=== PATIENT | female | born 2000 | race Caucasian/White ===

== ENCOUNTER 2020-01-04 13:00 | Emergency (ER) | payer OTHER, MEDICAID, SELFPAY ==
[2020-01-04 13:14] VITALS: BP 185/94; PULSE 106; RESP 16; TEMP 36.5; O2SAT 99
--- NOTE | 2020-01-04 14:16 | ED.SKABFB ---
HPI - Skin/Abscess/Foreign Bdy General Chief complaint: Skin/Abscess/Foreign Body Stated complaint: bite on back left leg Time Seen by Provider: 01/04/20 13:49 Source: patient and RN notes reviewed Mode of arrival: ambulatory Limitations: no limitations History of Present Illness HPI narrative: Patient presents today complaining of a possible insect bite to the posterior left calf that has been present for the last 2 days, worse since yesterday. Family member attempted to pop the area yesterday, resulting in some pus. Patient denies any history of abscesses, boils, staph infections. Currently rates her pain 03/08 and has been taking naproxen with some relief. MD complaint: insect bite/sting Related Data Allergies Allergy/AdvReac Type Severity Reaction Status Date / Time amoxicillin Allergy Intermediate Rash Verified 01/04/20 13:39 Penicillins Allergy Intermediate Rash Verified 01/04/20 13:39 Review of Systems Review of Systems: Narrative: CONSTITUTIONAL: Denies body aches, fever, chills, or sweats. EYES: Denies visual changes, redness, or discharge. ENT: Denies rhinorrhea, congestion, sore throat, or otalgia. CARDIOVASCULAR: Denies chest pain, palpitations, or edema. RESPIRATORY: Denies cough or dyspnea. GASTROINTESTINAL: Denies abdominal pain, nausea, vomiting, or diarrhea. GENITOURINARY: Denies dysuria or hematuria. SKIN: Denies rash, itching. + Insect sting to her left lower leg MUSCULOSKELETAL: Denies back pain, joint pain, or myalgia. NEUROLOGIC: Denies headache, numbness, tingling, or weakness. PSYCH: Denies depression or anxiety. [facility] Surgical History Surgical History (Updated 01/04/20 @ 14:18 by Jocelyn Ramey, [facility], ) History of cholecystectomy Exam Narrative: Exam Narrative: GENERAL: Well-appearing, over-nourished, and in no acute distress. HEAD: Normocephalic, atraumatic. EYES: EOMI. No redness or drainage. Conjunctivae normal. ENT: Mucous membranes pink and moist. NECK: Normal AROM. CHEST: No respiratory distress. EXTREMITIES: Left lower leg: Posteriorly, erythematous 7 x 6 cm area of mild induration with 1 x 1 cm area of fluctuance. Mildly tender to palpation. No active drainage. Distal sensation intact. Capillary refill normal. No edema or red streaking noted. Full range of motion of the ankle and knee. SKIN: Warm, dry, no rash. Capillary refill normal. Normal skin turgor. NEURO: No focal deficits. Alert and oriented x3. Gait steady. PSYCH: Normal affect. No signs of depression or anxiety. Course Vital Signs Vital signs: Vital Signs Temperature 97.7 F 01/04/20 13:14 Pulse Rate 106 H 01/04/20 13:14 Respiratory Rate 16 01/04/20 13:14 Blood Pressure 185/94 H 01/04/20 13:14 Pulse Oximetry 99 01/04/20 13:14 Temperature 97.7 F 01/04/20 13:14 Pulse Rate 106 H 01/04/20 13:14 Respiratory Rate 16 01/04/20 13:14 Blood Pressure 185/94 H 01/04/20 13:14 Pulse Oximetry 99 01/04/20 13:14 Reviewed. Pt has been instructed to follow up with her PCP regarding her elevated blood pressure today. Procedures Abscess I/D lower extremity: Date of Incision: 01/04/20 Time of Incision: 14:00 Side (if applicable): left Local Anesthetic: lidocaine 1% Amount of anesthesia used (mL): 2 Technique: incised with #11 blade Amount of fluid expressed (mL): 0.5 Irrigation: No Packing used?: none I&D Results: Pus and Blood Abcess I&D Additional Comments: Wound culture obtained. Dressed with large Band-Aid. Patient tolerated procedure well MDM - Skin/Abscess/Foreign Bdy Differential Diagnosis Differential diagnosis: Likely abscess of skin or subcutaneous tissue, urticaria, cellulitis, insect bites and impetigo Critical Care Time Critical Care Time Critical Care Time: No Discharge Plan Discharge Clinical Impression: Cellulitis and abscess of left leg Patient Disposition: Home, Self-Care Condition: S
== END 2020-01-04 14:27 | disposition home or self-care (01) ==
PROVIDERS: Emergency Provider Nurse Practitioner
DX: L03.116 Cellulitis of left lower limb (principal); L02.416 Cutaneous abscess of left lower limb
CPT/HCPCS: 10060; 87070; 87147; 87186; 87205; 99203; G0463

== ENCOUNTER 2020-01-25 13:06 | Emergency (ER) | payer OTHER, MEDICAID, SELFPAY ==
[2020-01-25 13:16] VITALS: BP 152/93; PULSE 108; RESP 16; TEMP 36.9; O2SAT 98
--- NOTE | 2020-01-25 13:43 | ED.URI ---
HPI - URI/Sore Throat General Chief Complaint: Upper Respiratory Infection Stated Complaint: sore throat Time Seen by Provider: 01/25/20 13:19 Source: patient and RN notes reviewed Mode of arrival: ambulatory Limitations: no limitations History of Present Illness HPI Narrative: Patient presents today complaining of a sore throat since this morning. Pain increases with swallowing. Denies fever, difficulty swallowing, shortness of breath. Currently rates her pain 1/10. She took Aleve with mild relief. 1 week ago patient developed congestion and cough symptoms. The symptoms have since completely resolved. Denies known exposure to COVID-19. MD elicited complaint: sore throat Related Data Allergies Allergy/AdvReac Type Severity Reaction Status Date / Time amoxicillin Allergy Intermediate Rash Verified 01/04/20 13:39 Penicillins Allergy Intermediate Rash Verified 01/04/20 13:39 Review of Systems Review of Systems: Narrative: CONSTITUTIONAL: Denies body aches, fever, chills, or sweats. EYES: Denies visual changes, redness, or discharge. ENT: Denies rhinorrhea, congestion, or otalgia.+Sore throat CARDIOVASCULAR: Denies chest pain, palpitations, or edema. RESPIRATORY: Denies cough or dyspnea. GASTROINTESTINAL: Denies abdominal pain, nausea, vomiting, or diarrhea. GENITOURINARY: Denies dysuria or hematuria. SKIN: Denies rash, itching, or wounds. MUSCULOSKELETAL: Denies back pain, joint pain, or myalgia. NEUROLOGIC: Denies headache, numbness, tingling, or weakness. PSYCH: Denies depression or anxiety. [facility] Surgical History Surgical History (Updated 01/04/20 @ 14:18 by Jocelyn Ramey, [facility], ) History of cholecystectomy Comments At time of signature, I have reviewed and agree with nursing past medical, surgical, social and family history unless otherwise noted. Please see nursing chart for further information. There is no relevant family history pertinent to the presenting complaint Exam Narrative: Exam Narrative: GENERAL: Well-appearing, over-nourished, and in no acute distress. HEAD: Normocephalic, atraumatic. EYES: EOMI. No redness or drainage. Conjunctivae normal. ENT: Mucous membranes pink and moist. Nares clear. No rhinorrhea. TMs normal bilaterally. Throat Erythematous. Tonsils 2+ with small amount of white exudate bilaterally. Uvula midline. NECK: Normal AROM. Supple. No lymphadenopathy. CHEST: No respiratory distress. Clear to auscultation. HEART: Regular rate and rhythm. No murmur appreciated. Normal peripheral pulses. EXTREMITIES: Normal range of motion. No edema. SKIN: Warm, dry, no rash. Capillary refill normal. Normal skin turgor. NEURO: No focal deficits. Alert and oriented x3. Gait steady. PSYCH: Normal affect. No signs of depression or anxiety. Course Vital Signs Vital signs: Vital Signs Temperature 98.5 F 01/25/20 13:16 Pulse Rate 108 H 01/25/20 13:16 Respiratory Rate 16 01/25/20 13:16 Blood Pressure 152/93 H 01/25/20 13:16 Pulse Oximetry 98 01/25/20 13:16 Temperature 98.5 F 01/25/20 13:16 Pulse Rate 108 H 01/25/20 13:16 Respiratory Rate 16 01/25/20 13:16 Blood Pressure 152/93 H 01/25/20 13:16 Pulse Oximetry 98 01/25/20 13:16 Reviewed. Pt has been instructed to follow up with her PCP regarding her elevated blood pressure today. MDM - URI/Sore Throat Differential Diagnosis Differential diagnosis: Likely upper respiratory infection, otitis media, sinusitis, viral infection, pharyngitis and other (Strep throat, COVID-19) Lab Data Attestation: I reviewed the patient's lab results. Labs: Strep Screen Presumptive Negative *(Reference Range: Negative)* Critical Care Time Critical Care Time Critical Care Time: No Discharge Plan Discharge Clinical Impression: Pharyngitis Qualifiers: Pharyngitis/tonsillitis etiology: unspecified etiology Qualified Code(s): J02.9 - Acute pharyngitis, unspecifi
== END 2020-01-25 14:05 | disposition home or self-care (01) ==
PROVIDERS: Emergency Provider Nurse Practitioner
DX: J02.9 Acute pharyngitis, unspecified (principal); Z20.828 Contact with and (suspected) exposure to other viral communicable diseases
CPT/HCPCS: 87081; 87880; 99213; G0463

== ENCOUNTER 2023-09-04 11:27 | Emergency (ER) | payer OTHER, SELFPAY ==
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
[2023-09-04 11:28] VITALS: BP 152/109; PULSE 94; RESP 16; TEMP 36.5; O2SAT 100
[2023-09-04 11:36] VITALS: BP 153/110; RESP 20; TEMP 36.3; O2SAT 100
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
[2023-09-04] MEDS: IBUPROFEN 600 MG TABLET PO (13:22)
[2023-09-04] MEDS: HYDROcodone/acetaminophen (*CRX) 5-325 MG TABLET 1 TAB PO (13:23)
[2023-09-04 14:30] VITALS: BP 141/89; PULSE 92; RESP 19; TEMP 36.9; O2SAT 100
== END 2023-09-04 14:30 | disposition home or self-care (01) ==
PROVIDERS: Emergency Provider Emergency Medicine
DX: S40.812A Abrasion of left upper arm, initial encounter (principal); V43.52XA Car driver injured in collision with other type car in traffic accident, initial encounter
CPT/HCPCS: 72125; 73030; 73080; 99284; A9270